=== PATIENT | female | born 1995 | race American Indian/Alaskan Native ===

== ENCOUNTER 2017-02-19 13:19 | Emergency (ER) | payer MEDICAID ==
--- NOTE | 2017-02-19 17:11 | Emergency Department Report ---
HPI - General Chief Complaint: Medical Clearance Time Seen by Provider: 02/19/17 16:30 - HPI HPI: This is a 21-year-old female presents to ED Center if she is concerned that she might have been exposed to STD based on having sex with her boyfriend who may have possibly have STD possible chlamydia. She is unsure if was severely tested. Patient states she is not having any pain with urination or vaginal irritation. She denies fevers/chills/nausea/vomiting/abdominal pain, vaginal bleed/ ED Past Medical Hx - Past Medical History Additional medical history: chlamydia - Social History Smoking Status: Never Smoker ED Review of Systems ROS: Stated complaint: POSSIBLE STD Other details as noted in HPI Constitutional: denies: chills, fever Eyes: denies: eye pain, eye discharge, vision change ENT: denies: ear pain, throat pain Respiratory: denies: cough, shortness of breath, wheezing Cardiovascular: denies: chest pain, palpitations Endocrine: no symptoms reported Gastrointestinal: denies: abdominal pain, nausea, diarrhea Genitourinary: denies: urgency, dysuria, discharge Musculoskeletal: denies: back pain, joint swelling, arthralgia Skin: denies: rash, lesions Neurological: denies: headache, weakness, paresthesias Psychiatric: denies: anxiety, depression Hematological/Lymphatic: denies: easy bleeding, easy bruising Physical Exam - Physical Exam Vital Signs: Vital Signs 02/19/17 14:38 Temperature 98.7 F Pulse Rate 90 Respiratory 16 Rate Blood Pressure 115/77 Blood Pressure 115/77 [Left] O2 Sat by Pulse 100 Oximetry Physical Exam: GENERAL: Alert and oriented x3, no apparent distress, Normal Gait, atraumatic. HEAD: Head is normocephalic and a-traumatic. NECK: Supple. Non edematous, No lymphadenopathy or thyromegaly. No C-spine tenderness LUNGS: Symetrical with respiration, No wheezing, no rales or crackles, CTAB. HEART: S1, S2 present, regular rate and rhythm without murmur, no rubs, no gallops. Non tender to palpation ABDOMEN: No organomegaly was noted,Positive bowel sounds, soft, and non- distended. . Nontender to palpation on all Quadrants, NO CVA tenderness. SKIN: Warm and dry, No lesions, No ulceration or induration present. ED Course Vital Signs 02/19/17 14:38 Temperature 98.7 F Pulse Rate 90 Respiratory 16 Rate Blood Pressure 115/77 Blood Pressure 115/77 [Left] O2 Sat by Pulse 100 Oximetry ED Medical Decision Making - Medical Decision Making 21-year-old female presents with STD exposure. ED course: Urinalysis and UPT. Urinalysis negative Patient received 250 mg of Rocephin, azithromycin 1 g, Flagyl 2 g. Discussed with patient possible STD due to exposure. Discussed with patient findings and treatment Discussed prophylaxis treatment patient is to abstain from sex 7-10 days as treatment. Discussed patient partner knowledge and treatment. Discussed the follow-up with the health department for further STD testing. Patient's alert and oriented times 3. Vital signs are normal patient is in no acute distress Patient will be discharged home with instructions. Critical care attestation.: If time is entered above; I have spent that time in minutes in the direct care of this critically ill patient, excluding procedure time. ED Disposition Clinical Impression: Exposure to STD Disposition: DC-01 TO HOME OR SELFCARE Is pt being admited?: No Does the pt Need Aspirin: No Condition: Stable Instructions: Sexually Transmitted Diseases (ED), Safe Sex (ED) Additional Instructions: Make sure to go to the health department for further STD testing Follow-up which her [employer] for follow-up Referrals: JOEY NÚÑEZ MD [Primary Care Provider] - 3-5 Days ROSA FERNANDES MD [Referring] - 3-5 Days [facility] [Outside] - 3-5 Days [facility] [Outside] - 3-5 Days Forms: Work/School Release Form(ED) Time of Disposition: 18:34
[2017-02-19] MEDS ORDERED: XYLOCAINE 1% MPF 5 mL INFILTRATI ONE (18:00)
[2017-02-19] MEDS ORDERED: FLAGYL PO ONE (18:00)
[2017-02-19] MEDS ORDERED: ZITHROMAX PO ONE (18:00)
[2017-02-19] MEDS ORDERED: ROCEPHIN IM ONE (18:00)
[2017-02-19 18:26] LABS: Bilirubin,Urine NEG (Negative); Blood,Urine NEG (Negative); Ketones,Urine TR mg/dL (Negative); Leukocyte Esterase,Urine NEG (Negative); Mucus,Urine 3+ /HPF; Nitrite,Urine NEG (Negative); Urobilinogen,Urine < 2.0 mg/dL (<2.0)
[2017-02-19 18:49] VITALS: BP 112/70
== END 2017-02-19 18:48 | disposition home or self-care (01) ==
LOC: ED 13:19
DX: Z20.2 Contact with and (suspected) exposure to infections with a predominantly sexual mode of transmission (principal)
CPT/HCPCS: 81001; 81025; 96372; 99283; J0696